=== PATIENT | female | born 1950 | race Caucasian/White ===

== ENCOUNTER 2021-07-13 09:05 | Outpatient (CLI) | payer MEDICARE | END 2021-07-13 09:06 | disposition home or self-care (01) | LOC: CSHMRI 09:05 | PROVIDERS: ATTEND Orthopaedic Surgery | DX: M25.552 Pain in left hip (principal); M16.12 Unilateral primary osteoarthritis, left hip; M25.752 Osteophyte, left hip; M25.452 Effusion, left hip ==

== ENCOUNTER 2021-08-31 13:04 | Outpatient (CLI) | payer MEDICARE | END 2021-08-31 13:05 | disposition home or self-care (01) | LOC: CSHMRI 13:04 | PROVIDERS: ATTEND Anesthesiology Pain Medicine | DX: M54.16 Radiculopathy, lumbar region (principal); M47.816 Spondylosis without myelopathy or radiculopathy, lumbar region; M48.061 Spinal stenosis, lumbar region without neurogenic claudication | CPT/HCPCS: 72148 ==

== ENCOUNTER 2021-10-08 09:53 | Outpatient (CLI) | payer MEDICARE | END 2021-10-08 09:54 | disposition home or self-care (01) | LOC: CSHMAMMO 09:53 | PROVIDERS: ATTEND Family Medicine | DX: Z12.31 Encounter for screening mammogram for malignant neoplasm of breast (principal) | CPT/HCPCS: 77063; 77067 ==

== ENCOUNTER 2023-01-20 13:13 | Outpatient (CLI) | payer MEDICARE | END 2023-01-20 13:14 | disposition home or self-care (01) | LOC: CSHMAMMO 13:13 | PROVIDERS: ATTEND Family Medicine | DX: Z12.31 Encounter for screening mammogram for malignant neoplasm of breast (principal) | CPT/HCPCS: 77063; 77067 ==